=== PATIENT | male | born 1975 | race African-American/Black ===

== ENCOUNTER 2021-06-26 10:31 | Emergency (ER) | payer MEDICAID, SELFPAY ==
[2021-06-26 10:42] VITALS: BP 119/67; BP 148/89; PULSE 75; PULSE 85; RESP 20; O2SAT 95; O2SAT 97; BMI 18.2
[2021-06-26] MEDS: Naloxone HCl 2 MG/2 ML SYRINGE IVPUSH (11:04)
--- NOTE | 2021-06-26 11:05 | PC.NURSE ---
Medicated per mar with IV narcan. Pt initial rr even and unlabored, but pt was unrousable to painful or verbal stimuli. pt placed on Zoll monitor for closer monitoring.
--- NOTE | 2021-06-26 11:09 | ED_ITS ---
HPI - Overdose General Chief Complaint: Overdose Stated Complaint: overdose Time Seen by Provider: 06/26/21 10:50 Source: patient and EMS Mode of arrival: EMS Limitations: altered mental status ( Likely secondary to drug abuse) History of Present Illness HPI Narrative: 45-year-old male came in by ambulance for possible drug overdose. Patient was brought in by ambulance and was given 2 mg IV Narcan with partial response patient was transported to the ED, patient is sleeping maintaining vital signs stable, do not answer questions, pupil pinpoint, do not admit to using drugs. Related Data Allergies Allergy/AdvReac Type Severity Reaction Status Date / Time No Known Allergies Allergy Unverified 10/31/19 19:52 [No Known Allergies*] Review of Systems Review of Systems: All other systems are reviewed and are negative Constitutional: Reports as per HPI and Reports no additional constitutional complaints Eyes: Reports as per HPI and Reports no additional eye complaints Reports system reviewed and no additional complaints, except as documented Cardiovascular: Reports as per HPI and Reports no additional cardiovascular complaints Respiratory: Reports as per HPI and Reports no additional respiratory complaints Gastrointestinal: Reports as per HPI and Reports no additional gastrointestinal complaints Genitourinary: Reports no additional female genitourinary complaints Musculoskeletal: Reports no additional musculoskeletal complaints Skin/Breast: Reports system reviewed and no additional complaints, except as docu Psychiatric: Reports no additional psychiatric complaints Endocrine: Reports no additional endocrine complaints Hematologic/Lymphatic: Reports no additional hematologic/lymphatic complaints Allergic/Immunologic: Reports no additional allergic/immunologic complaints Reports system reviewed and no additional complaints, except as documented and Reports Abnormal speech present Physical Exam Vital Signs: Vital Signs: Last Vital Signs Pulse 75 06/26/21 10:42 Resp 18 06/26/21 12:00 BP 119/67 06/26/21 10:42 Pulse Ox 97 06/26/21 10:42 BMI result Body Mass Index 18.2 vital signs have been reviewed as appeared to be correct. Blood pressure normal. Heart rate normal. Respiration rate normal. Temperature normal. Oxygen saturation normal. Appearance: Sleeping, open his eyes to painful stimuli. No acute distress. Head: Normal external exam. Normocephalic. Atraumatic. No Xiong signs noted. N o raccoon eyes noted Eyes: PERRLA. EOMI. Conjunctiva and sclera normal. Eyelids normal. ENT: TM's Normal. Pharynx normal. Uvula midline. Moist mucous membranes. No trismus noted. No drooling noted. No muffled voice noted. Neck: Normal inspection. Neck supple. FROM. No adenopathy. Thyroid Normal. No meningeal signs. No neck mass noted. CVS: Normal heart rate and rhythm. Heart sound normal. No murmurs noted. Pulses normal throughout. Respiratory: No respiratory distress. Painless inspiration. Breath sounds normal. No wheezes/rales/rhonchi noted. Chest nontender. No accessory muscle usage noted or decreased air movement noted. Abdomen: Soft and nontender. Bowel sounds normal in all 4 quadrants. No distention noted. No organomegaly noted. No visible injury noted. Back: No CVA tenderness. Full range of motion noted. Skin: Skin warm and dry. Normal skin color. Normal skin turgor. No rashes/lesions/lacerations noted. Extremities: No lower extremity edema. Extremities exhibit normal range of motion. Extremities nontender. Neuro: Cranial nerve exam: II-XII are grossly intact No motor deficit. No sensory deficit. Reflexes normal. Course Reevaluation(s) Reevaluation #1: patient has been sleeping now it is easier to arouse, regarding examiner been having stable vital signs. Urine tox is positive for opiates/fentanyl/cocaine. Will keep observing in the emergency room until he is fully awake/ Will consult care team,then discharge. Time: 14:44 MDM - Overdose Lab Data Attestation: I reviewed the patient's lab results. Labs: Lab Results 06/26/21 06/26/21 Range/Units 12:21 12:21 Urine Color YELLOW Urine Appearance HAZY Urine pH 7.0 (5.0-8.0) Ur Specific [place] 1.010 (1.005-1.025) Urine Protein NEG (NEG-TRACE) MG/DL Urine Glucose (UA) NEG (NEG) MG/DL Urine Ketones NEG (NEG) MG/DL Urine Blood NEG (NEG) Urine Nitrite NEG (NEG) Ur Leukocyte Esterase TRACE H (NEG) Urine RBC 0 (0) /HPF Urine WBC 1-4 (0-4) /HPF Ur Squamous Epith Cells TRACE /LPF Urine Bacteria NONE /LPF Urine Opiates Screen POSITIVE H (Not Detect) Urine Fentanyl Screen POSITIVE H (Not Detect) Ur Barbiturates Screen Not Detected (Not Detect) Ur Phencyclidine Scrn Not Detected (Not Detect) Ur Amphetamines Screen Not Detected (Not Detect) U Benzodiazepines Scrn Not Detected (Not Detect) Urine Cocaine Screen POSITIVE H (Not Detect) U Marijuana (THC) Screen Not Detected (Not Detect) Discharge Plan Discharge Clinical Impression: Drug overdose, Accidental drug ingestion Patient Disposition: Still a Patient Instructions: Adult Overdose (ED)
[2021-06-26 12:00] VITALS: RESP 18
--- NOTE | 2021-06-26 12:00 | PC.NURSE ---
Pt ambulated with mildly unsteady gait to bathroom. Pt changed over in avery. Crack found in sock during traveler changer. Security aware. Provider aware.
[2021-06-26 12:34] LABS: Appearance Urine HAZY; Color Urine YELLOW; Glucose Urine UA NEG (NEG); Leukocyte Esterase Urine TRACE (NEG); Nitrite Urine NEG (NEG); Urine Blood NEG (NEG); Urine Ketones NEG (NEG); Urine Protein NEG (NEG-TRACE)
[2021-06-26 12:40] LABS: Squamous Epithelial Cell Urine TRACE /LPF
[2021-06-26 12:41] LABS: RBC Urine 0 /HPF (0)
[2021-06-26 12:52] LABS: Amphetamine Screen Urine Not Detected (Not Detect); Barbiturates, Urine Not Detected (Not Detect); Benzodiazepines Screen Urine Not Detected (Not Detect); Cannabinoid Screen Urine Not Detected (Not Detect); Cocaine Screen Urine POSITIVE (Not Detect); Fentanyl, urine POSITIVE (Not Detect); Opiate Screen Urine POSITIVE (Not Detect); Phencyclidine Screen Urine Not Detected (Not Detect)
[2021-06-26 15:27] VITALS: BP 115/81; PULSE 90; RESP 14; TEMP 37.1; O2SAT 95
--- NOTE | 2021-06-26 17:47 | HO.SUDE ---
CARE Team attempted to rouse pt several times with limited success. Pt's current altered mental status prevents him from participating in a SUDE at this time.
[2021-06-26 18:00] VITALS: RESP 18
--- NOTE | 2021-06-26 18:41 | PC.NURSE ---
Pt is awake and rousable but refuses to participate in SHIFT assessment. Pt is able to walk to the bathroom and tolerate PO.
--- NOTE | 2021-06-26 18:43 | MHC.RECOVSUP ---
? Reason for consult:RECOVERY Support o Current location:[facility] o Identified substance use concern:Polysubstance - Overdose - Support ? Intervention: o ? Plan: o ? Additional information:Made multiple attempts to arouse patient. Patient told me to leave him alone and to get off of him. Patient refuses to engage with me in any way.
--- NOTE | 2021-06-26 19:24 | PC.NURSE ---
Pt is a&o , no sob or chest pain. pt is rude and aggressive towards staff. Care Team has revaluated pt and report it is okay for pt to be discharged home.
[2021-06-26] MEDS: Naloxone HCl Nasal TAKE HOME 4 MG SPRAY NOSTRILALT (19:29)
== END 2021-06-26 19:31 | disposition home or self-care (01) ==
PROVIDERS: Emergency Provider Emergency Medicine
DX: T50.901A Poisoning by unspecified drugs, medicaments and biological substances, accidental (unintentional), initial encounter (principal); Y92.9 Unspecified place or not applicable
CPT/HCPCS: 80307; 81001; 96374; 99284